=== PATIENT | male | born 1960 | race African-American/Black ===

== ENCOUNTER 2019-11-18 15:38 | Inpatient (IN) | payer OTHER ==
[~2019-11-18] VITALS: Ht 185.4 cm; Wt 89.8 kg
--- NOTE | 2019-11-18 15:40 | NUR ---
PT BIBRA FROM CLINIC C/O CHEST PAIN NON RADIATING, PER EMS PT HAVING SVT CARDIOVERT AT THE SCENE, PT IS AAOX4, NOT IN RESPIRATORY DISTRESS, HOOKED TO RECORDS MANAGER, KEPT RESTED AND COMFORTABLE. WILL CONTINUE TO MONITOR.
--- NOTE | 2019-11-18 15:42 | NUR ---
PT SEEN AND EXAMINED BY
[2019-11-18] MEDS ORDERED: APIX5TAB PO (15:57)
[2019-11-18] MEDS ORDERED: METH750T3 PO (15:57)
[2019-11-18] MEDS ORDERED: METO50TA16 PO (15:57)
[2019-11-18] MEDS ORDERED: ALBU18HF2 INH (15:57)
[2019-11-18] MEDS ORDERED: HYDR-3980 MT (16:03)
[2019-11-18 16:27] LABS: BASOPHILS # (AUTO) 0.1 /CMM (0.0-0.2); BASOPHILS % (AUTO) 0.8 % (0.0-2.0); EOSINOPHILS % (AUTO) 5.1 % (0.0-6.0); HEMATOCRIT 28 % (39-51); HEMOGLOBIN 8.8 g/dL (13.5-17.5); LYMPHOCYTES # (AUTO) 0.1 /CMM (0.8-4.8); LYMPHOCYTES % (AUTO) 1.9 % (20.0-44.0); MEAN CORPUSCULAR HGB CONC 31 g/dl (31.0-36.0); MEAN CORPUSCULAR VOLUME 79 fL (80-96); MONOCYTES # (AUTO) 0.6 /CMM (0.1-1.30); MONOCYTES % (AUTO) 8.5 % (2.0-12.0); NEUTROPHILS % (AUTO) 83.7 % (43.0-81.0); PLATELET COUNT (AUTO) 350 /CMM (150-450); RED BLOOD CELL COUNT(AUTO) 3.58 MIL/uL (4.5-6.0); WHITE BLOOD COUNT (AUTO) 7.2 K/uL (4.3-11.0)
--- NOTE | 2019-11-18 17:47 | NUR ---
PRINCE ([facility]) [phone]
[2019-11-18 18:20] LABS: CALCIUM, SERUM 8.9 mg/dL (8.5-10.1); CREATININE 1.2 mg/dL (0.6-1.3); POTASSIUM 4.4 mmol/L (3.5-5.1)
--- NOTE | 2019-11-18 19:05 | NUR ---
SPOKE WITH [facility] [employer] [facility], WILL ATTEMPT TO TRANSFER PT
--- NOTE | 2019-11-18 19:06 | NUR ---
REPORT GIVEN TO MADDY WEINSTEIN FOR EDDA.
--- NOTE | 2019-11-18 19:11 | NUR ---
DR. CARTAGENA SPEAKING WITH KAREN LARA
[2019-11-18] MEDS ORDERED: IV NS 0.9% 1,000 ML IV ONE (19:30)
--- NOTE | 2019-11-18 20:05 | NUR ---
PT REC'D A FOOD TRAY.
--- NOTE | 2019-11-18 20:12 | NUR ---
SPOKE WITH [facility] TITLE COORDINATOR REQUESTING FOR TRANSFER INFORMATION. PENDING CALL BACK FROM [facility] WITH MORE INFO
--- NOTE | 2019-11-18 20:16 | NUR ---
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 WILL CALL BACK ONCE RESULTED
--- NOTE | 2019-11-18 20:34 | NUR ---
PERSONAL INVESTMENT ADVISER IS AT THE BEDSIDE FOR REPEAT TROPONIN BLOOD DRAW.
--- NOTE | 2019-11-18 20:35 | NUR ---
P[T DIDN'T LIKE THE FOOD TRAY AND ASKED FOR A TURKEY OR PB &J SANDWICH.
--- NOTE | 2019-11-18 21:02 | NUR ---
PT REC'D PB AND J SANDWICH AND A TURKEY SANDWICH.
--- NOTE | 2019-11-18 21:09 | NUR ---
PER KAREN SIMS, ADMIT TO SOH
--- NOTE | 2019-11-18 21:12 | NUR ---
PAGED DR. JORGE
--- NOTE | 2019-11-18 21:12 | NUR ---
RAN VERBAL AUTH [id number] DR SIMS
--- NOTE | 2019-11-18 21:14 | NUR ---
DR. CARTAGENA SPEAKING WITH DR. JORGE
[2019-11-18] MEDS ORDERED: ZOLPIDEM TARTRATE 5 MG TABLET PO PRN (21:30)
[2019-11-18] MEDS ORDERED: HYDROCODONE/APAP 10/325MG TABLET PO PRN (21:30)
[2019-11-18] MEDS ORDERED: IV D5/ 0.9% NACL 1,000 ML IV PRN (21:30)
[2019-11-18] MEDS ORDERED: ACETAMINOPHEN 650 MG/20.3 ML UDC PO PRN (21:30)
[2019-11-18] MEDS ORDERED: ALBUTEROL SULFATE INH 18 GM HFA.AER.AD IH PRN (21:30)
--- NOTE | 2019-11-18 21:57 | NUR ---
2D ECHO DONE AT THE BEDSIDE.
--- NOTE | 2019-11-18 22:03 | NUR ---
PT APPEARS TO BE RESTING COMFORTABLY. VSS.
--- NOTE | 2019-11-18 22:10 | NUR ---
COVID SWAB DONE AND SENT TO LAB.
--- NOTE | 2019-11-18 22:23 | NUR ---
CALLED LAB. COVID SWAB IS STILL NOT RUNNING. LAB IS JUST RECEIVING SWAB.
--- NOTE | 2019-11-18 22:49 | NUR ---
REC'D NEG RESULTS FROM LAB
--- NOTE | 2019-11-18 22:50 | NUR ---
PT IS GOING TO 311-1 TELE.
--- NOTE | 2019-11-18 22:51 | NUR ---
Deysi bello in [facility] - 11/18/19 at 2302 by [email or web address] CALLING REPORT TO MADDY FULTON
--- NOTE | 2019-11-18 23:02 | NUR ---
CALLING REPORT TO MADDY PENA
--- NOTE | 2019-11-18 23:35 | NUR ---
ADMISSION NOTE PATIENT ADMITTED FROM ER. ADMIT DX SVT. WAS AT DR. OFFICE AND BECAME SOB WITH PALPITATIONS WITH NEAR SYNCOPE. ADMITTED UNDER DR. JORGE NEW ORDERS RECIEVED. PT IS AMBULATORY WITH STEADY GAIT. SKIN INTACT HAS 20 GAUGE TO RIGHT WRIST. DENIES CP. TELE APPLIED READING SR. ADMISSION ASSESSMENT PERFORMED. PT ORIENTED X4 REVIEWED POC VERBALIZED UNDERSTANDING . BED DOWN LOCKED SRX2 CALL LIGHT PLACED WITHIN REACH. VERBALIZED UNDERSTANDING TO CALL IF HE NEEDS ANY ASSISTANCE.
[2019-11-19] VITALS: BP 105/76
[2019-11-19] MEDS ORDERED: ZOLPIDEM TARTRATE 5 MG TABLET ONE (00:08)
[2019-11-19 01:14] VITALS: BP 105/76
--- NOTE | 2019-11-19 02:09 | NUR ---
scd indicated vte 4. none available on unit. to f/u with application in the am.
[2019-11-19] MEDS ORDERED: ALBUTEROL SULFATE INH 18 GM HFA.AER.AD IH PRN (03:30)
[2019-11-19 04:00] VITALS: BP_SYST 116; BP_SYST 126; BP_DIAS 42; BP_DIAS 68
[2019-11-19 06:30] LABS: BASOPHILS % (AUTO) 0.5 % (0.0-2.0); EOSINOPHILS % (AUTO) 8.2 % (0.0-6.0); HEMATOCRIT 24 % (39-51); HEMOGLOBIN 7.8 g/dL (13.5-17.5); LYMPHOCYTES # (AUTO) 0.2 /CMM (0.8-4.8); LYMPHOCYTES % (AUTO) 2.8 % (20.0-44.0); MEAN CORPUSCULAR HGB CONC 32 g/dl (31.0-36.0); MEAN CORPUSCULAR VOLUME 80 fL (80-96); MONOCYTES # (AUTO) 0.5 /CMM (0.1-1.30); MONOCYTES % (AUTO) 9.3 % (2.0-12.0); NEUTROPHILS # (AUTO) 4.5 /CMM (1.8-8.9); NEUTROPHILS % (AUTO) 79.2 % (43.0-81.0); PLATELET COUNT (AUTO) 379 /CMM (150-450); RED BLOOD CELL COUNT(AUTO) 3.06 MIL/uL (4.5-6.0); WHITE BLOOD COUNT (AUTO) 5.7 K/uL (4.3-11.0)
--- NOTE | 2019-11-19 06:50 | NUR ---
RN PM CLOSING NOTE. PT IS AMBULATORY WITH STEADY GAIT. REPORTS HE GOT SOME SLEEP LAST NIGHT. SKIN INTACT HAS 20 GAUGE TO RIGHT WRIST RUNNING D5NS AT 75ML PER HOUR WITH NO S/S OF COMPLICATIONS. DENIES CP. TELE READING SR IN 80'S. PT ORIENTED X4 REVIEWED POC VERBALIZED UNDERSTANDING . BED DOWN LOCKED SRX2 CALL LIGHT PLACED WITHIN REACH.
[2019-11-19 06:52] LABS: BILIRUBIN,TOTAL 0.1 mg/dL (0.2-1.0); CALCIUM, SERUM 8.8 mg/dL (8.5-10.1); POTASSIUM 3.8 mmol/L (3.5-5.1); TOTAL PROTEIN, SERUM 7.3 g/dL (6.4-8.2)
[2019-11-19 06:57] LABS: THYROID STIMULATING HORMONE 0.844 uIU/mL (0.358-3.74)
--- NOTE | 2019-11-19 07:30 | NUR ---
CERTIFIED MEDICAL ASSISTANT OPENING NOTE RECEIVED PT AWAKE ALERT AND ORIENTED X4. NO CARDIAC OR RESP DISTRESS NOTED. NO SOB NOTED. SATURATING WELL ON ROOM AIR. NO COMPLAINTS OF CHEST PAIN, DIZZINESS OR PALPITATIONS. PT IS AMBULATORY WITH STEADY GAIT. IV ACCESS NOTED ON R WRIST G20. NOTED TO BE INFILTRATED UPON ROUNDS, WITH SOME SWELLING NOTED. WILL RE-NSERT IV ACCESS. SAFETY PRECAUTIONS IN PLACE. BED LCOKED AND IN LOW POSITION. SIDE RAILS UPX2. CALL LIGHT WITHIN REACH. WILL CONT TO MONITOR.
[2019-11-19 08:47] VITALS: BP 98/61
[2019-11-19] MEDS: METHOCARBAMOL (750MG) 750 MG TABLET PO SCH ×2 (08:55→12:18)
[2019-11-19] MEDS ORDERED: APIXABAN 5 MG TABLET PO SCH (09:00)
[2019-11-19] MEDS ORDERED: ALBUTEROL FS 2.5 MG/3 ML VIAL.NEB IH PRN (09:00)
[2019-11-19] MEDS ORDERED: METOPROLOL TARTRATE 50 MG TABLET PO SCH (09:00)
--- NOTE | 2019-11-19 10:30 | NUR ---
DISCHARGE KUB RESULTS REPORTED TO DR. LUISITO TINEO TO D/C PT TODAY
--- NOTE | 2019-11-19 12:30 | NUR ---
INVENTORY INVENTORY DONE AND COMPLETED WITH THE PT. PER PT HE HAS ALL OF HIS BELONGINGS
--- NOTE | 2019-11-19 13:00 | NUR ---
D/C HOME PT DISCHARGED HOME IN STABLE CONDITION. NO C/O CHEST PAIN, PALPITATIONS OR SOB. NO CARDIAC OR RESP DISTRESS NOTED. NO SOB NOTED. SATURATING WELL ON ROOM AIR. ALL D/C INSTRUCTIONS PROVIDED TO THE PT. UNDERSTOOD ALL TEACHING AND MEDS. EXPLAINED IN LAYMENS TERM. PIV ACCESS REMOVED. NO S/S OF BLEEDING NOTED. PT LEFT IN STABLE CONDITION. PER PT HE WILL BE TAKING PUBLIC TRANSPORTATION. ALL BELONGINGS BROUGHT BY THE PT.
== END 2019-11-19 13:30 | disposition home or self-care (01) | DRG 309 ==
LOC: ER 15:43 → TELE 23:21
PROVIDERS: ADMIT Internal Medicine; ATTEND Internal Medicine
DX: I47.1 Supraventricular tachycardia (principal); C34.90 Malignant neoplasm of unspecified part of unspecified bronchus or lung; I10 Essential (primary) hypertension; Z86.718 Personal history of other venous thrombosis and embolism; Z79.01 Long term (current) use of anticoagulants; R79.89 Other specified abnormal findings of blood chemistry; D64.9 Anemia, unspecified; Z92.21 Personal history of antineoplastic chemotherapy
CPT/HCPCS: 36415; 71045-TC; 74018; 80048-TC; 80053-TC; 80061-TC; 82728-TC; 83540-TC; 83880; 84439-TC; 84443-TC; 84484-TC; 85025-TC; 85730-TC; 87081-TC; 93307-TC; G0378; J7030; J7042